=== PATIENT | male | born 1930 | race African-American/Black ===

== ENCOUNTER 2019-07-20 17:00 | Inpatient (IN) | payer OTHER ==
[~2019-07-20] VITALS: Ht 182.9 cm; Wt 81.7 kg
[2019-07-20] MEDS ORDERED: ATEN100T PO (17:09)
[2019-07-20] MEDS ORDERED: OMEP10CA5 PO (17:10)
[2019-07-20] MEDS ORDERED: HYDR-3281 PO (17:10)
[2019-07-20] MEDS ORDERED: ALLO100T57 PO (17:10)
[2019-07-20] MEDS ORDERED: ASPI-986 PO (17:10)
[2019-07-20 19:03] LABS: BASOPHILS % 0.5 % (0.0-2.0); EOSINOPHILS % 2.1 % (0.0-5.0); HEMATOCRIT. 29.9 % (42.0-52.0); HEMOGLOBIN. 9.4 g/dL (14.0-18.0); LYMPHOCYTES % 17.6 % (20.0-50.0); MEAN CORPUSCULAR HEMOGLOBIN 24.5 pg (28.0-32.0); MEAN CORPUSCULAR VOLUME 77.9 fL (80.0-94.0); MONOCYTES % 14.6 % (2.0-8.0); NEUTROPHILS % 65.2 % (40.0-76.0); PLATELET 309 x1000/uL (130-400); RED BLOOD CELL COUNT 3.84 mill/uL (4.7-6.1); RED CELL DISTRIBUTION WIDTH 26.3 % (11.6-14.6)
[2019-07-20 21:15] LABS: CHLORIDE 104 mEq/L (98-107)
[2019-07-20 21:19] LABS: ETHANOL BLOOD < 10 mg/dL
[2019-07-20 21:31] LABS: PLATELET ESTIMATE NORMAL
[2019-07-20] MEDS ORDERED: ASPIRIN 300MG SUPP PR ONE (21:45)
[2019-07-20] MEDS ORDERED: SODIUM CHLORIDE 0.9% 1,000 ML IV ONE (22:00)
[2019-07-20 23:51] LABS: CLARITY URINE CLEAR (CLEAR); COLOR URINE YELLOW (YELLOW); KETONES URINE NEGATIVE (NEGATIVE); LEUKOCYTE ESTERASE URINE NEGATIVE (NEGATIVE); NITRITE URINE NEGATIVE (NEGATIVE); OCCULT BLOOD URINE 1+ (NEGATIVE); PH URINE 7.5 (4.5-8.0); PROTEIN URINE NEGATIVE (NEGATIVE); SPECIFIC GRAVITY URINE 1.015 (1.005-1.030)
[2019-07-21 00:27] LABS: *AMPHETAMINES SCREEN URINE NEGATIVE (NEGATIVE); *BARBITURATES SCREEN URINE NEGATIVE (NEGATIVE)
[2019-07-21 00:28] LABS: *BENZODIAZEPINES SCREEN URINE NEGATIVE (NEGATIVE); *COCAINE SCREEN URINE NEGATIVE (NEGATIVE); CANNABINOID URINE SCREEN NEGATIVE (NEGATIVE); METHADONE URINE SCREEN NEGATIVE (NEGATIVE); OPIATES URINE SCREEN NEGATIVE (NEGATIVE); PHENCYCLIDINE URINE SCREEN NEGATIVE (NEGATIVE)
[2019-07-21] MEDS ORDERED: BENZONATATE 100MG CAPSULE PO PRN (12:00)
[2019-07-21] MEDS ORDERED: ACETAMINOPHEN 325MG TABLET PO PRN (12:00)
[2019-07-21] MEDS ORDERED: METOCLOPRAMIDE HCL 10MG/2ML VIAL IV PRN (12:00)
[2019-07-21 17:41] LABS: HEPATITIS B SURFACE ANTIGEN NEGATIVE
[2019-07-21 18:10] LABS: HEPATITIS A AB IGM NEGATIVE (NEGATIVE)
[2019-07-22] MEDS: AZITHROMYCIN 500 MG TABLET PO SCH (18:24)
[2019-07-22] MEDS: ENOXAPARIN 30MG/0.3ML SYR SUBCUT SCH (18:24)
[2019-07-22 18:25] VITALS: BP 103/67
[2019-07-22 18:38] VITALS: BP 103/67
[2019-07-22 20:00] VITALS: BP 108/51
[2019-07-22 20:53] LABS: HEMATOCRIT. 32.6 % (42.0-52.0); MEAN CORPUSCULAR HEMOGLOBIN 24.9 pg (28.0-32.0); MEAN CORPUSCULAR VOLUME 80.9 fL (80.0-94.0); PLATELET 278 x1000/uL (130-400); RED BLOOD CELL COUNT 4.02 mill/uL (4.7-6.1); RED CELL DISTRIBUTION WIDTH 26.5 % (11.6-14.6)
[2019-07-22 20:59] LABS: CHLORIDE 111 mEq/L (98-107)
[2019-07-22 21:42] LABS: PLATELET ESTIMATE NORMAL
[2019-07-23] VITALS: BP 105/50
[2019-07-23 04:00] VITALS: BP 129/58
[2019-07-23 08:00] VITALS: BP 131/68
[2019-07-23 12:00] VITALS: BP 117/70
[2019-07-23 16:00] VITALS: BP 92/60
[2019-07-23] MEDS: ENOXAPARIN 30MG/0.3ML SYR SUBCUT SCH (16:55)
[2019-07-23] MEDS: AZITHROMYCIN 500 MG TABLET PO SCH (16:55)
[2019-07-23 22:00] VITALS: BP 132/72
== END 2019-07-24 00:21 | disposition short-term general hospital (02) | DRG 70 ==
LOC: ER 17:00 → CANRESERV 07-21 19:22 → ENRESERV 07-21 19:22 → EDBEDREQ 07-21 22:19 → ENRESERV 07-22 15:58 → 5WST 07-22 18:02
PROVIDERS: ADMIT Internal Medicine; ATTEND Internal Medicine
DX: G93.41 Metabolic encephalopathy (principal); E43 Unspecified severe protein-calorie malnutrition; A04.72 Enterocolitis due to Clostridium difficile, not specified as recurrent; D64.9 Anemia, unspecified; E11.9 Type 2 diabetes mellitus without complications; I10 Essential (primary) hypertension; M10.9 Gout, unspecified; R47.02 Dysphasia; R74.0 Nonspecific elevation of levels of transaminase and lactic acid dehydrogenase [LDH]; Z20.828 Contact with and (suspected) exposure to other viral communicable diseases; I69.30 Unspecified sequelae of cerebral infarction; Z68.24 Body mass index [BMI] 24.0-24.9, adult; Z79.899 Other long term (current) drug therapy; Z79.82 Long term (current) use of aspirin
CPT/HCPCS: 36415; 71045; 80048; 80053; 80305; 80320; 81003; 82140; 82962; 83880; 84484; 85025; 87493; 87635; 93005; 96360; 99285; J1650; G0480